=== PATIENT | female | born 1985 | race Caucasian/White ===

== ENCOUNTER → 2020-12-26 | Outpatient (CLI) | payer OTHER ==
--- NOTE | 2020-12-26 13:43 | XR ---
EXAMINATION TYPE: XR hand complete RT, XR wrist complete RT DATE OF EXAM: 12/26/2020 CLINICAL HISTORY: Lateral wrist pain TECHNIQUE: Frontal, lateral and oblique images of the right hand are obtained. 4 views right wrist COMPARISON: None. FINDINGS: There is no acute fracture/dislocation evident in the right hand or wrist. IMPRESSION: There is no acute fracture or dislocation in the right wrist or hand.
== END | disposition home or self-care (01) ==
LOC: RADXRMAIN 12:38
PROVIDERS: ATTEND Emergency Medicine
DX: M25.531 Pain in right wrist (principal); M79.641 Pain in right hand

== ENCOUNTER → 2021-01-05 | Outpatient (CLI) | payer OTHER ==
--- NOTE | 2021-01-05 09:26 | XR ---
EXAMINATION TYPE: XR wrist complete RT DATE OF EXAM: 01/05/2021 COMPARISON: NONE HISTORY: 35-year-old female S63.501D, lifting injury and pain TECHNIQUE: 4 views FINDINGS: Small sclerotic focus in the base of the third metacarpal likely bone island. There is slight positiv e ulnar variance. The radiocarpal and distal radial ulnar joint as well as the midcarpal compartment appear intact. No acute fracture, subluxation, or dislocation seen. IMPRESSION: No acute osseous abnormality seen.
== END | disposition home or self-care (01) ==
LOC: RADXRMAIN 08:59
PROVIDERS: ATTEND Emergency Medicine
DX: S63.501D Unspecified sprain of right wrist, subsequent encounter (principal); M25.531 Pain in right wrist; Y93.F2 Activity, caregiving, lifting

== ENCOUNTER → 2023-03-23 | Outpatient (CLI) | payer BC ==
[2023-03-23 16:33] LABS: ALT 11 U/L (8-44); AST 15 U/L (13-35); Albumin 4.2 d/dL (3.8-4.9); Albumin/Globulin Ratio 1.68 Ratio (1.60-3.17); Alkaline Phosphatase 96 U/L (41-126); Blood Urea Nitrogen 4.2 mg/dL (9.0-27.0); Calcium 9.3 mg/dL (8.7-10.3); Carbon Dioxide 25.3 mmol/L (21.6-31.8); Chloride 102 mmol/L (96-109); Chol/HDL Ratio 2.64 Ratio; Globulin 2.5 d/dL (1.6-3.3); Glucose 193 mg/dL (70-110); LDL Cholesterol,Calculated 102.3 mg/dL (0.0-131.0); Potassium 4.9 mmol/L (3.5-5.5); Sodium 137 mmol/L (135-145); Total Bilirubin 0.4 mg/dL (0.3-1.2); Total Protein 6.7 d/dL (6.2-8.2); VLDL Calculation 14.44 mg/dL (5.00-40.00)
[2023-03-23 19:00] LABS: Microalbumin Creatinine Ratio <53 mg/g Cr (0-30); Urine Creatinine 22.8 mg/dL (28.0-217.0)
== END | disposition home or self-care (01) ==
LOC: LABWHC1 09:34
PROVIDERS: ATTEND Internal Medicine Endocrinology, Diabetes & Metabolism
DX: E10.65 Type 1 diabetes mellitus with hyperglycemia (principal)
CPT/HCPCS: 36415; 80053; 80061; 82043; 82570; 83036; 84443

== ENCOUNTER → 2023-03-23 | Outpatient (CLI) | payer BC ==
[2023-03-23 15:33] LABS: HGB 10.1 d/dL (12.0-15.0); MCH 21.4 pg (27.0-32.0); MCHC 28.9 d/dL (32.0-37.0); MCV 74.3 FL (80.0-97.0); Mean Platelet Volume 10.4 FL (9.5-12.2); NRBC Per 100 WBC 0 X 10*3/uL (0.00-0.01); Platelet Count 359 X 10*3/uL (140-440); RBC 4.71 X 10*6/uL (4.10-5.20); RDW 21.1 % (11.5-14.5); WBC 7.39 X 10*3/uL (4.50-10.00)
[2023-03-23 16:08] LABS: Basophils # (A) 0.04 X 10*3/uL (0.00-0.10); Basophils % (A) 0.5 %; Eosinophils # (A) 0.16 X 10*3/uL (0.04-0.35); Eosinophils % (A) 2.2 %; Lymphocytes # (A) 1.29 X 10*3/uL (0.90-5.00); Lymphocytes % (A) 17.5 %; Microcytosis (M) 2+; Monocytes # (A) 0.39 X 10*3/uL (0.20-1.00); Monocytes % (A) 5.3 %; Neutrophils # (A) 5.49 X 10*3/uL (1.80-7.70); Neutrophils % (A) 74.2 %
== END | disposition home or self-care (01) ==
LOC: LABPAT 09:32
PROVIDERS: ATTEND Obstetrics & Gynecology Obstetrics
DX: Z01.812 Encounter for preprocedural laboratory examination (principal); N92.0 Excessive and frequent menstruation with regular cycle; E10.9 Type 1 diabetes mellitus without complications; R94.31 Abnormal electrocardiogram [ECG] [EKG]
CPT/HCPCS: 85025; 93005

== ENCOUNTER 2023-04-05 10:20 | Day surgery (SDC) | payer BC ==
--- NOTE | 2023-04-05 09:57 | P.HPOB ---
History of Present Illness H&P Date: 04/05/23 Chief Complaint: menorrhagia 37 yo female with complaints of heavy menstrual bleeding. She has been struggling with heavy menstrual bleeding and anemia, necessitating transfusion. menses are noted to be regular q 28 days with a 7 day heavy flow with clots. [employer] history 3 prior c section with a tubal ligation done with her last delivery Review of Systems Constitutional: Reports fatigue, Denies chills, Denies fever Ears, nose, mouth and throat: Denies headache Cardiovascular: Denies leg edema Respiratory: Denies dyspnea Gastrointestinal: Denies nausea, Denies vomiting Genitourinary: Denies Menstruation: Reports menses 1-7 days, Reports period heavy Past Medical History Past Medical History: Diabetes Mellitus Additional Past Medical History / Comment(s): heavy periods, anemia- fatigue History of Any Multi-Drug Resistant Organisms: None Reported Additional Past Surgical History / Comment(s): rt middle finger - trigger finger. all teeth pulled. Past Anesthesia/Blood Transfusion Reactions: No Reported Reaction Additional Past Anesthesia/Blood Transfusion Reaction / Comment(s): no issues with blood transfusions Smoking Status: Current every day smoker - Past Family History Father History Unknown: Yes Mother History Unknown: Yes Medications and Allergies Home Medications Medication Instructions Recorded Confirmed Type ALPRAZolam [Xanax] 0.5 mg PO QID PRN 03/25/23 03/25/23 History Insulin Aspart (For Pump) [NovoLOG 0.01 unit SQ-PUMP CONTINUOUS 03/25/23 03/25/23 History (For Pump)] Sertraline [Zoloft] 100 mg PO DAILY 03/25/23 03/25/23 History Allergies Allergy/AdvReac Type Severity Reaction Status Date / Time No Known Allergies Allergy Verified 03/25/23 11:38 Exam Osteopathic Statement: *. No significant issues noted on an osteopathic structural exam other than those noted in the History and Physical/Consult. on physical exam she is a well nourished well developed female in no acute distress, breathing is non labored and heart has a RRR, abdomen is soft and non tender. on exam external genitalia is noted to be normal for age without lesion. vaginal mucosa is pink and well rugated, cervix is without lesion. uterus is normal in appearance and no adnexal masses are appreciated. Assessment and Plan (1) Menorrhagia Status: Acute Code(s): N92.0 - EXCESSIVE AND FREQUENT MENSTRUATION WITH REGULAR CYCLE SNOMED Code(s): 489178220 (2) Anemia Status: Acute Code(s): D64.9 - ANEMIA, UNSPECIFIED SNOMED Code(s): 755843552 Plan: 37 yo female with complaints of menorrhagia and anemia, options for treatment discussed and she elects Vickie BOLAND EA novasure. Procedure is reviewed and all questions are answered, will proceed with Vickie BOLAND [facility]
[~2023-04-05 10:20] MED LIST: DEXAMETHASONE SOD PHOSPHATE 4 MG/ML 1 ML VIAL IV ONE; HYDROmorphone 0.5 MG/0.5 ML SYRINGE IVP PRN; LACTATED RINGERS 1,000 ML IV SCH; LIDOCAINE 1% (10MG/ML) FOR IV START INTRADERMA PRN; ONDANSETRON 4 MG/2 ML VIAL IVP ONE; Pre Op ABX Message 1 EACH MISC MISCELLANE ONE; droPERidol 5 MG/2 ML VIAL IVP ONE
[2023-04-05 10:48] LABS: Glucose,Whole Blood 106 mg/dL (70-110)
[2023-04-05] MEDS ORDERED: MIDAZOLAM 2 MG/2 ML VIAL ONE (11:50)
[2023-04-05] MEDS ORDERED: PROPOFOL 10 MG/ML 20 ML VIAL IV ONE (11:50)
[2023-04-05] MEDS ORDERED: fentaNYL (PF) 50 MCG/ML 2 ML AMP ONE (11:50)
[2023-04-05] MEDS ORDERED: LIDOCAINE 1% INJ 10MG/ML (20 ML MDV) ONE (11:50)
[2023-04-05] MEDS ORDERED: KETOROLAC 15 MG/ML 1 ML VIAL ONE (11:50)
--- NOTE | 2023-04-05 12:26 | P.OP ---
Date of Procedure: 04/05/23 Preoperative Diagnosis: Menorrhagia, anemia Postoperative Diagnosis: Same Procedure(s) Performed: Hysteroscopy, dilation and curettage, endometrial ablation, NovaSure Anesthesia: MAC Surgeon: Silva Boss Estimated Blood Loss (ml): 5 IV fluids (ml): 300 Urine output (ml): 100 (Clear yellow) Pathology: other (Endometrial curettings) Condition: stable Disposition: PACU Indications for Procedure: Heavy menstrual bleeding with noted anemia, with prior blood transfusion Operative Findings: Proliferative endometrium Description of Procedure: Patient was seen back operative suite where general anesthesia was obtained without difficulty by the anesthesia department. She was prepped and draped in the normal sterile fashion in the dorsal lithotomy position. A red rubber cat heter was used to drain the bladder of clear yellow urine. A weighted speculum posterior vaginal vault, the anterior lip was then visualized and grasped with a single-tooth tenaculum. Endocervical canal was then serially dilated. Uterus was sounded to 9 cm. Hysteroscopy was performed. Hysteroscope was placed through the cervix for the and Lauren cavity, an intact cavity was appreciated with proliferative endometrium. The hysteroscope was then removed. A gentle curettage was then performed and the specimen was sent to pathology. The NovaSure device was then opened and set to the appropriate measurements of the patient's uterus. Length of 5, width of 3.5, total cycle length of 1 min 22 sec. after cavity assessment was passed the cycle was allowed to proceed. After cycle was completed the NovaSure device was removed without difficulty. The single-tooth tenaculum was taken off of the anterior lip of the cervix. Hemostasis was appreciated. All counts were noted be correct 2. Patient was taken to the recovery room awake in stable condition.
[2023-04-05 12:37] LABS: Glucose,Whole Blood 119 mg/dL (70-110)
[2023-04-05 12:38] VITALS: TEMP 97
[2023-04-05] MEDS ORDERED: HYDROmorphone 0.5 MG/0.5 ML SYRINGE IVP ONE (12:50)
[2023-04-05 13:18] VITALS: RESP 17
[2023-04-05 13:59] VITALS: BP 145/73; PULSE 64
== END 2023-04-05 13:57 | disposition home or self-care (01) ==
LOC: OR 10:20
PROVIDERS: ATTEND Obstetrics & Gynecology Obstetrics
DX: N92.0 Excessive and frequent menstruation with regular cycle (principal); D64.9 Anemia, unspecified; E11.9 Type 2 diabetes mellitus without complications; F32.A Depression, unspecified; F41.9 Anxiety disorder, unspecified; F17.210 Nicotine dependence, cigarettes, uncomplicated; Z79.4 Long term (current) use of insulin; Z98.891 History of uterine scar from previous surgery; Z79.899 Other long term (current) drug therapy
CPT/HCPCS: 81025; 88305; 58563; J2250; J1100; J2405; J2001; J3010; J1885; J2704; J1170